=== PATIENT | female | born 1995 | race Caucasian/White ===

== ENCOUNTER 2022-07-28 00:40 | Emergency (ER) | payer OTHER ==
[2022-07-28] MEDS ORDERED: KETO10TA2 PO (03:27)
== END 2022-07-28 03:36 | disposition home or self-care (01) ==
LOC: ER 00:40
DX: S82.62XA Displaced fracture of lateral malleolus of left fibula, initial encounter for closed fracture (principal); W05.1XXA Fall from non-moving nonmotorized scooter, initial encounter; Y93.89 Activity, other specified; Y92.89 Other specified places as the place of occurrence of the external cause; Y99.9 Unspecified external cause status